=== PATIENT | female | born 2000 | race Caucasian/White ===

== ENCOUNTER 2023-08-07 06:46 | Outpatient (CLI) | payer OTHER, SELFPAY ==
--- NOTE | ~2023-08-07 | MR_ITS ---
EXAMINATION: MR brain/brain stem wo/w con DATE: 08/07/2023 07:52 INDICATION: Benign neoplasm of pituitary gland. TECHNIQUE: Magnetic resonance imaging (MRI) of the brain and brainstem was performed without and with 19 mL MultiHance intravenous contrast. COMPARISON: None. FINDINGS: The pituitary demonstrates a height of 10 mm and convex superior margin. The infundibulum i s at the midline. There is an 8 x 3 x 10 mm nonenhancing mass in the pituitary at the junction of the anterior and posterior pituitary. There is chronic encephalomalacia in medial left cerebellum. There is no intracranial hemorrhage or acute ischemic infarct. There is ex vacuo dilatation of fourth vent ricle. The orbits are normal. The paranasal sinuses are clear. The mastoid air cells are normal. IMPRESSION: 1. 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 2. Chronic encephalomalacia in medial left cerebellum. Reviewed, dictated and finalized at location A. [employer]
== END 2023-08-07 06:47 | disposition home or self-care (01) ==
PROVIDERS: PCP Nurse Practitioner Family; Visit Provider Nurse Practitioner Family
DX: D35.2 Benign neoplasm of pituitary gland (principal)
CPT/HCPCS: 70553; A9577

== ENCOUNTER 2024-05-01 15:21 | Outpatient (CLI) | payer OTHER, SELFPAY ==
[2024-05-01 16:11] LABS: Anion Gap 12 mmol/L (4-12); Blood Urea Nitrogen 6 mg/dL (7-17); Calcium 9.5 mg/dL (8.4-10.2); Carbon Dioxide 27 mmol/L (22-30); Chloride 99 mmol/L (98-107); Estimated Glomerular Filt Rate > 60; Glucose 83 mg/dL (65-110); Potassium 4.1 mmol/L (3.4-5.0); Sodium 138 mmol/L (137-145)
[2024-05-01 16:26] LABS: Free T4 Free Thyroxine 1.07 ng/mL (0.78-2.19)
[2024-05-03 01:18] LABS: FSH 3.8 mIU/mL; LH 6.4 mIU/mL; Prolactin 6.2 ng/mL
[2024-05-06 13:03] LABS: Adrenocorticotropic Hormone 25 pg/mL (6-50)
[2024-05-12 01:04] LABS: Estradiol, Ultrasensitive 229 pg/mL
[2024-05-16 03:05] LABS: IGFBP-1 <5 ng/mL (5-34)
== END 2024-05-01 15:22 | disposition home or self-care (01) ==
LOC: ANHLAB 15:25
PROVIDERS: PCP Nurse Practitioner Family; Visit Provider Internal Medicine Endocrinology, Diabetes & Metabolism
DX: D35.2 Benign neoplasm of pituitary gland (principal)
CPT/HCPCS: 36415; 80048; 82024; 82670; 83001; 83002; 84146; 84439; 84443

== ENCOUNTER 2025-05-01 09:23 | Outpatient (CLI) | payer OTHER, SELFPAY ==
--- OUTSIDE RECORDS SUMMARY | 2025-05-01 09:29 | XMS_ITS | Clinical Summary ---
Author Organization [facility] Address [address] [place] [address] Care Team Providers Care Nanoscience Technician Name Role Phone Provider, Not In System Primary Care Provider Un available Source Comments This disclosure is being made pursuant to the [employer] program and maynot contain all information available regarding this patient.[facility] Allergies Active Allergy Reactions Criticality Noted Date Comments Gentamicin Other (See Comments) 09/01/2014 Medications No known medications Active Problems Problem Noted Date Diagnosed Date Condition of brain 05/26/2006 Overview (12/23/2015): Overview: Brain tumor resection-JPA Immunizations Immunization Administration Dates Next Due DTaP (Infanrix) DTaP 05/04/2006,05/20/20 02,07/10/2001,05/31,03/01/2001 Haemophilus Influenzae type b (ProHIBIT) Hib PRP-D 07/15/2002 Hepatitis A pediatric 05/30/2013,04/26/2012 Hepatitis B-Haemophilus infl uenzae type b (Comvax) HepB-Hib 05/20/2002,05/31/2001,03/01/2001 Human Papillomavirus (Gardasil 4) HPV4 3,04/26/2012 LIVE Czhkbdz-Baqjx-Cfrenaz ( M-M-R II) MMR 01/02/2002 LIVE Gjtftrn-Exkim-Rxnfgbo-V aricella (ProQuad) MMRV 05/04/2006 LIVE Varicella (Varivax) CORNELIO 01/02/2002 Meningococcal Conjugate (Men veo) MCV4 MenACWY-CRM 04/26/2012 Pneumococcal Conjugate-7 (Pr evnar 7) PCV7 05/20/2002,01/02/2002,05/31/2001,03/01 Polio (Ipol) IPV 05/04/2006, 2,05/31/2001,03/01 Tdap 04/26/2012 Family History Medical History Relation Name Comments Other Other Depressive diso rder - All Family: Noted on 2008-07-12 11:01:30 Relation Name Status Comments Other Social History Tobacco Use Types Packs/Day Years Used Date Smoking Tobacco: Never Smokeless Tobacco: Never Comments Unknown Sex and Gender Information Value Date Recorded Sex Assigned at Not on file Legal Sex Female 9:28 AM CDT Gender Identity Not on file Sexual Orientation Not on file Last Filed Vital Signs Vital Sign Reading Time Taken Comments Blood Pressure 104/66 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 Pulse 81 12/23/2015 2:28 PM CDT Temperature 36.7 C (98 F) 12/23/2015 2:28 PM CDT Respiratory Rate 18 07/01/2010 9:18 AM CDT Oxygen Saturation 98% 12/23/2015 2:28 PM CDT Inhaled Oxygen Concentration - - Weight 96.6 kg (213 lb) 12/23/2015 2:28 PM CDT Height 148.6 cm (4' 10.5) 04/26/2012 10:34 AM C DT Body Mass Index - - Plan of Treatment Health Maintenance Due Date Last Done Comments HPV 2000 Lab-Cholesterol Screening 2000 Lab-Hepatitis C Screening 2000 Chlamydia Screening 2016 Annual Wellness Visit 2018 Cervical Cancer Screening 2021 Pap Smear 2021 Tetanus/Pertussis Vaccine Teen/Adult (7 - Td or Tdap) 04/26/2022 04/26/2012, 05/04/2006, 05/20/2002, Additional history exists COVID-19 Vaccine ( - 2023- season) 2024 03/06/2021, 02/13/2021 Influenza Vaccine (#1) 2025 Zoster (Shingles) Vaccine 50+ (1 of 2) 2050 RSV Adult (1 - 1-dose 75+ series) 12/22/2075 Hepatitis B Vaccine Completed 05/20/2002, 05/31/2001, 03/01/2001 Pneumococcal Vaccines 0-49 yo Aged Out 05/20/2002, 01/02/2002, 05/31/2001, Additional history exists No longer eligible based on patient's age to complete this topic HIB Vaccine Completed 07/15/2002, 04/26, 05/31/2001, Additional history exists IPV Vaccine Completed 05/04/2006, 04/26, 05/31/2001, Additional history exists Meningococcal Conjugate Vaccine Aged Out 04/26/2012 No longer eligible based on patient's age to complete this topic HPV Vaccine (9-26yo & Shared Decision 27-45yo) Completed 05/30/2013, 04/26/2012 Hepatitis A Vaccine Completed 05/30/2013, 2 RSV < 20 Months Aged Out No longer el igible based on patient's age to complete this topic Insurance [employer] Care Teams Nanoscience Technician Relationship Specialty Start Date End Date Provider, Not In System PCP - General 10/01/21
[2025-05-01 10:21] LABS: Alanine Aminotransferase 13 U/L (6-35); Albumin Level 5.0 g/dL (3.5-5.1); Alkaline Phosphatase 68 U/L (38-126); Anion Gap 11 mmol/L (4-12); Aspartate Amino Transferase 20 U/L (14-36); Bilirubin,Total 0.3 mg/dL (0.2-1.3); Blood Urea Nitrogen 10 mg/dL (7-17); Calcium 9.5 mg/dL (8.4-10.2); Carbon Dioxide 23 mmol/L (22-30); Chloride 105 mmol/L (98-107); Estimated Glomerular Filt Rate > 60; Glucose 84 mg/dL (65-110); Potassium 4.1 mmol/L (3.4-5.0); Sodium 139 mmol/L (137-145); Total Protein 8.3 g/dL (6.3-8.2)
[2025-05-01 10:39] LABS: Free T4 Free Thyroxine 1.12 ng/dL (0.78-2.19)
[2025-05-01 10:56] LABS: Thyroid Stimulating Hormone 2.320 uIU/mL (0.465-4.680)
[2025-05-02 07:09] LABS: LH 5.6 mIU/mL (.)
[2025-05-02 09:08] LABS: FSH 2.3 mIU/mL (.)
[2025-05-06 18:08] LABS: IGF-1, Z Score -0.7 S.D. (-2.0 - +2.0)
== END 2025-05-01 09:24 | disposition home or self-care (01) ==
LOC: ANHLAB 09:24
PROVIDERS: PCP Nurse Practitioner Adult Health; Visit Provider Internal Medicine Endocrinology, Diabetes & Metabolism
DX: D35.2 Benign neoplasm of pituitary gland (principal)
CPT/HCPCS: 36415; 80053; 82024; 82533; 83001; 83002; 83520; 84146; 84305; 84439; 84443

== ENCOUNTER 2025-05-02 10:45 | Outpatient (CLI) | payer OTHER, SELFPAY ==
--- NOTE | ~2025-05-02 | MR_ITS ---
EXAMINATION: MR pituitary wo/w con DATE: 05/02/2025 12:29 INDICATION: Benign neoplasm of the pituitary gland. Diplopia. TECHNIQUE: Magnetic resonance imaging (MRI) of the brain and brainstem was performed without and with 16 mL Multihance intravenous contrast. Whole-brain sequences included sagittal T1-weighted FSE, axia l diffusion-weighted FS EPI, axial T2*-weighted GRE, axial T2-weighted FLAIR Propeller, and axial T2- weighted Propeller. Small swlar-hi-bzkz sequences included sagittal and coronal T1-weighted FSE cente red at the pituitary. Postcontrast sequences included small ybcqa-at-oqhr coronal T1-weighted FSE in a time course and sagittal T1-weighted FSE and whole-brain axial T1-weighted FSE. Apparent diffusion coefficient (ADC) maps were created. . COMPARISON: 08/07/2023 FINDINGS: There are no areas of restricted diffusion to suggest acute infarction. No intracranial hemorrhage. S table appearance of chronic encephalomalacia at the anteromedial left cerebellum. There is secondary ex vacuo dilation of the fourth ventricle. No abnormally enhancing lesions at the resection bed. Asso ciated overlying craniotomy and foci postoperative susceptibility artifact. No significant interval c hange in a nonenhancing cystic lesion measuring 10 x 8 x 4 mm with single thin internal enhancing sep tation located at the junction between the anterior and posterior pituitary. This displaces the anter ior prostate anteriorly and superiorly with unchanged mild cephalad bulging of the pituitary which me asures 10 mm in height. The cephalad margin of the pituitary extends mildly into the suprasellar cist estelle but remains separate from the more cephalad optic chiasm by small amount of CSF. Pituitary stalk remains normal and midline. There are no intraparenchymal signal abnormalities seen on the other puls e sequences. The lateral and third ventricles are symmetric and normal in size. There are no abnormal extra-axial fluid collections. Flow voids are seen in the cerebral arteries on the T2-weighted seque nces consistent with their expected patency. Mild mucoperiosteal thickening the bilateral ethmoid sin uses. Visualized orbits and soft tissues are unremarkable. There are no other areas of abnormal enhan cement on the post contrast images. IMPRESSION: 1. No interval change in a 10 x 8 x 4 mm cystic pituitary mass most likely representing a Rathke's cl eft cyst. 2. Likely postoperative chronic encephalomalacia at the anteromedial left cerebellum. Correlate with neurosurgical history. Reviewed, dictated and finalized at location A. IMPRESSION: 1. No interval change in a 10 x 8 x 4 mm cystic pituitary mass most likely repr esenting a Rathke's cleft cyst. 2. Likely postoperative chronic encephalomalacia at the anteromedial left cereb ellum. Correlate with neurosurgical history.
--- OUTSIDE RECORDS SUMMARY | 2025-05-02 10:50 | XMS_ITS | Clinical Summary ---
Author Organization [facility] Address [address] [place] [address] Care Team Providers Care Software Test Developer Name Role Phone Provider, Not In System Primary Care Provider Un available Source Comments This disclosure is being made pursuant to the [employer] program and maynot contain all information available regarding this patient.[facility] Allergies Active Allergy Reactions Criticality Noted Date [...] Human Papillomavirus (Gardasil 4) HPV4 3,04/26/2012 LIVE Opzbthg-Eqrnr-Ilvfdom ( M-M-R II) MMR 01/02/2002 LIVE Uwavokg-Vutww-Azurisp-V aricella (ProQuad) MMRV 05/04/2006 LIVE Varicella (Varivax) [...] Comments Blood Pressure 104/66 10/29/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
== END 2025-05-02 10:46 | disposition home or self-care (01) ==
LOC: ANHIMG 10:47
PROVIDERS: PCP Nurse Practitioner Adult Health; Visit Provider Internal Medicine Endocrinology, Diabetes & Metabolism
DX: D35.2 Benign neoplasm of pituitary gland (principal)
CPT/HCPCS: 70553; A9577